=== PATIENT | male | born 1935 | race Caucasian/White ===

== ENCOUNTER 2023-04-01 14:27 | Emergency (ER) | payer MEDICARE, BC ==
[~2023-04-01] VITALS: Ht 177.8 cm; Wt 137.0 kg
[2023-04-01 14:31] VITALS: BP 0/0; PULSE 0; RESP 0; O2SAT 0
== END 2023-04-01 14:45 ==
LOC: ER 14:43
DX: I46.9 Cardiac arrest, cause unspecified (principal); I48.91 Unspecified atrial fibrillation; E11.9 Type 2 diabetes mellitus without complications; I10 Essential (primary) hypertension
CPT/HCPCS: 99291